=== PATIENT | male | born 1990 | race Caucasian/White ===

== ENCOUNTER 2020-10-28 01:21 | Emergency (ER) | payer SELFPAY ==
[2020-10-28 01:16] VITALS: BP 139/92; PULSE 124; RESP 18; TEMP 36.5; O2SAT 97; BMI 25.0
--- NOTE | 2020-10-28 01:37 | PC.NURSE ---
Pt has warm IV fluids infusing at this time
--- NOTE | 2020-10-28 01:50 | PC.NURSE ---
Pt states he is UTD on tetnus.
[2020-10-28 01:51] LABS: Basophils % 0.2 % (0.1-2.0); Eosinophils % 0.1 % (0.1-12.0); Hematocrit 42.2 % (42.0-52.0); Hemoglobin 14.1 g/dL (14.1-18.0); Lymphocytes % 8.2 % (10-50); Mean Corpuscular HGB Conc 33.5 g/dL (31.8-35.4); Mean Corpuscular Hemoglobin 29.1 pg (27.0-31.2); Mean Corpuscular Volume 87.1 fl (80-94); Mean Platelet Volume 9.1 fl (7.4-10.4); Monocytes # 0.5 K/mm3 (0.1-1.0); Neutrophils # 11.2 K/mm3 (1.8-7.8); Neutrophils % 87.6 % (37.0-80.0); Platelet Count 231 K/mm3 (142-424); Red Blood Count 4.84 M/mm3 (4.60-6.20); Red Cell Distribution Width 14.1 % (11.5-17.5); White Blood Count 12.7 K/mm3 (4.8-10.8)
[2020-10-28 01:54] LABS: MANUAL DIFFERENTIAL MANUAL DIFFERENTIAL (MANUAL DIFF)
[2020-10-28 01:56] LABS: Anion Gap 11.9 mEq/L (5-15); Blood Urea Nitrogen 22 mg/dl (9-20); Calcium 9.9 mg/dl (8.4-10.2); Carbon Dioxide 31 mmol/L (22.0-30.0); Chloride 101 mmol/L (98-107); Creatinine Clearance Estimated 145 mL/min (50-200); Estimated Glomerular Filt Rate 100 ml/min (>60); GFR (African American) 122 ML/MIN (>60); Glucose 96 mg/dl (74-100); Magnesium 2.1 mg/dl (1.6-2.3); Potassium 3.9 mmoL/L (3.5-5.1); Sodium 140 mmol/L (136-145)
[2020-10-28 02:00] VITALS: BP 128/71; PULSE 124; RESP 16; O2SAT 98
[2020-10-28 02:18] LABS: Lymphocytes % 6 % (10-50); Neutrophils % 85 % (42-76); Platelet Estimate Normal; RBC Morphology Normal; Total Cells Counted 100
--- NOTE | 2020-10-28 02:46 | [facility].EDGENADL ---
ED Disposition Clinical Impression: Chilblain Qualifiers: Encounter type: initial encounter Qualified Code(s): T69.1XXA - Chilblains, initial encounter Frostbite Qualifiers: Encounter type: initial encounter Qualified Code(s): T33.90XA - Superficial frostbite of unspecified sites, initial encounter Disposition: Home, Self-Care Condition on Discharge: Good - Critical Care Critical Care Time: No Attestation: On , the high probability of a clinically significant, sudden or life threatening deterioration of the following system(s) required my full and direct attention, intervention and personal management. The time I documented below is in addition to time spent performing reported procedures but includes the following listed in this critical care notation. Medical Decision Making - Medical Records Medical records reviewed: Yes: I reviewed the patient's medical records. - Elías Inquiry Pt receiving controlled substance: No Vital Signs: 10/28/20 01:16 10/28/20 02:00 Temperature 97.7 F Temperature Source Oral Pulse Rate [Left Radial] 124 H 124 H Respiratory Rate 18 16 Blood Pressure [Right Arm] 139/92 H 128/71 Blood Pressure Mean [Right Arm] 107 90 Blood Pressure Source [Right Arm] Automatic Cuff Automatic Cuff Blood Pressure Position [Right Arm] Supine Supine 02 Sat by Pulse Oximetry 97 98 Oxygen Delivery Method Room Air Room Air - Lab Data Lab Results 10/28/20 01:30: WBC 12.7 H, RBC 4.84, Hgb 14.1, Hct 42.2, MCV 87.1, MCH 29.1, MCHC 33.5, RDW 14.1, Plt Count 231, MPV 9.1, Neut % (Auto) 87.6 H, Lymph % (Auto) 8.2 L, [place] % (Auto) 4.0, Eos % (Auto) 0.1, Baso % (Auto) 0.2, Neut # (Auto) 11.2 H, Lymph # (Auto) 1.0, [place] # (Auto) 0.5, Eos # (Auto) 0.0, Baso # (Auto) 0.0, Total Counted 100, Neutrophils % (Manual) 85 H, Band Neutrophils % 9.0 H, Lymphocytes % (Manual) 6 L, Platelet Estimate Normal, RBC Morphology Normal 10/28/20 01:30: Sodium 140, Potassium 3.9, Chloride 101, Carbon Dioxide 31 H, Anion Gap 11.9, BUN 22 H, Creatinine 0.90, Estimated Creat Clear 145, Estimated GFR 100, Est GFR ( Amer) 122, Glucose 96, Calcium 9.9, Magnesium 2.1 Result diagrams: 10/28/20 01:30 10/28/20 01:30 Orders (Tests/Meds): ED MEDICATIONS Generic Name Dose Route Start Last Admin Trade Name Freq PRN Reason Stop Dose Admin Lactated Ringer's 1,000 mls @ 999 mls/hr 10/28/20 01:30 10/28/20 01:41 Lactated Ringer's 1000 Ml Bag IV 10/28/20 02:30 999 mls/hr .[id number] BRANDEN Administration Discontinued Medications Generic Name Dose Route Start Last Admin Trade Name Freq PRN Reason Stop Dose Admin Acetaminophen 1,000 mg 10/28/20 01:24 10/28/20 01:39 Acetaminophen 325mg/10.15ml Udc PO 10/28/20 01:25 Not Given ONCE ONE Acetaminophen 1,000 mg 10/28/20 01:38 10/28/20 01:41 Acetaminophen 500mg Tab PO 10/28/20 01:39 1,000 mg ONCE ONE Administration Tetanus/Reduced Diphtheria/Acell Pertussis 0.5 ml 10/28/20 01:24 Tet/Diphth/Pert-Adult 0.5ml Syringe IM 10/28/20 01:25 .ONCE ONE Medical Decision Narrative: In summary this is a 22-year-old male who presents after cold exposure. On arrival patient has no signs of trauma on head, denies any pain in his upper extremities, chest or abdomen pelvis. Patient feet do appear cold, this is either frostbite versus chilblains, patient had feet rewarmed, was given 1 L bolus of warm fluids, patient's initial temperature was 98 Fahrenheit. Patient had basic labs done which were nonactionable, slight leukocytosis possibly setting of stress. Patient patient EKG demonstrated sinus tachycardia, this improved after fluid bolus. Patient has a safe place to be discharged to, patient amenable to plan. Patient was explained the signs and symptoms of chilblains versus frostbite, patient had strict return precautions provided. Patient was discharged home. General Adult HPI - General Chief complaint: PAIN Stated complaint: cold exposure Time Seen b
[2020-10-28 03:00] VITALS: BP 118/71; PULSE 105; RESP 16; O2SAT 98
[2020-10-28 03:21] VITALS: BP 121/71; PULSE 104; RESP 16; TEMP 36.8; O2SAT 98
== END 2020-10-28 03:51 | disposition home or self-care (01) ==
LOC: ER 03:39
PROVIDERS: Emergency Provider Emergency Medicine
DX: T33.822A Superficial frostbite of left foot, initial encounter (principal); T33.821A Superficial frostbite of right foot, initial encounter; T69.1XXA Chilblains, initial encounter; X31.XXXA Exposure to excessive natural cold, initial encounter; Y92.89 Other specified places as the place of occurrence of the external cause
CPT/HCPCS: 80048; 83735; 85007; 85025; 93005; 96365; 99282